=== PATIENT | male | born 1935 | race Caucasian/White ===

== ENCOUNTER 2018-08-19 05:03 | Emergency (ER) | payer OTHER, MEDICARE ==
[2018-08-19 06:08] LABS: Anisocytosis Slight; Basophils % (A) 1 %; Eosinophils # (A) 0.1 k/uL (0-0.7); Eosinophils % (A) 2 %; HGB 12.4 gm/dL (13.0-17.5); Hypochromasia Slight; Lymphocytes # (A) 1.4 k/uL (1.0-4.8); Lymphocytes % (A) 24 %; MCH 30.2 pg (25.0-35.0); MCHC 32.5 g/dL (31.0-37.0); MCV 92.7 fL (80.0-100.0); Mean Platelet Volume 7.3; Monocytes # (A) 0.3 k/uL (0-1.0); Monocytes % (A) 6 %; Neutrophils # (A) 3.8 k/uL (1.3-7.7); Neutrophils % (A) 65 %; Platelet Count 148 k/uL (150-450); RDW 16.2 % (11.5-15.5); WBC 5.9 k/uL (3.8-10.6)
--- NOTE | 2018-08-19 06:12 | XR ---
EXAMINATION TYPE: XR chest 2V DATE OF EXAM: 08/19/2018 COMPARISON: 04/23/2015 HISTORY: Dysrhythmia. The defibrillator malfunction. TECHNIQUE: Frontal and lateral views of the chest are obtained. FINDINGS: Heart size is normal. There is no gross heart failure. There is general coarsening of the pulmonary interstitial markings. I see no definite pleural effusion. There are chest leads. There is minimal pleural reaction at the lung bases. There are sternal wires. There is stent at the ascending aorta. The bony thorax is intact. IMPRESSION: Pulmonary interstitial fibrosis. No definite heart failure. No significant change compar ed to old exam.
[2018-08-19 06:17] LABS: INR 3.2 (<1.2); Partial Thromboplastin Time 34.6 sec (22.0-30.0); Prothrombin Time 28.3 sec (9.0-12.0)
[2018-08-19 06:23] LABS: ALT 32 U/L (21-72); AST 26 U/L (17-59); Albumin 4.1 g/dL (3.5-5.0); Alkaline Phosphatase 61 U/L (38-126); Anion Gap 10 mmol/L; Blood Urea Nitrogen 35 mg/dL (9-20); Calcium 9.5 mg/dL (8.4-10.2); Carbon Dioxide 27 mmol/L (22-30); Chloride 102 mmol/L (98-107); Glucose 221 mg/dL (74-99); Magnesium 1.7 mg/dL (1.6-2.3); Potassium 4.3 mmol/L (3.5-5.1); Sodium 139 mmol/L (137-145); Total Bilirubin 0.4 mg/dL (0.2-1.3); Total Protein 7.1 g/dL (6.3-8.2)
[2018-08-19 06:41] LABS: Creatine Kinase MB 2.8 ng/mL (0.0-2.4); Troponin I 0.016 ng/mL (0.000-0.034)
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
[2018-08-19 08:02] VITALS: BP 162/86; PULSE 70; RESP 20; TEMP 98
--- NOTE | 2018-08-21 06:54 | CDI ---
Documentation Clarification OP Dear Dr. Ele Woodard Please do addendum to ED report for missing HPI and Physical examination. Thank you, Elle Tee [employer] If you have any questions, please contact Thai Masseur at [phone] [facility]
== END 2018-08-19 08:35 | disposition home or self-care (01) ==
LOC: EC 05:03
DX: J44.9 Chronic obstructive pulmonary disease, unspecified (principal); E11.9 Type 2 diabetes mellitus without complications; E78.5 Hyperlipidemia, unspecified; I10 Essential (primary) hypertension; I25.2 Old myocardial infarction; Z85.51 Personal history of malignant neoplasm of bladder; Z95.810 Presence of automatic (implantable) cardiac defibrillator; Z95.1 Presence of aortocoronary bypass graft; Z95.5 Presence of coronary angioplasty implant and graft; Z87.891 Personal history of nicotine dependence; Z79.02 Long term (current) use of antithrombotics/antiplatelets; Z79.84 Long term (current) use of oral hypoglycemic drugs; Z79.82 Long term (current) use of aspirin; Z79.899 Other long term (current) drug therapy; Z88.5 Allergy status to narcotic agent
CPT/HCPCS: 36415; 71046; 80053; 82550; 82553; 83735; 84484; 85025; 85610; 85730; 93005; 99285

== ENCOUNTER 2019-01-12 03:32 | Emergency (ER) | payer OTHER, MEDICARE ==
[2019-01-12 03:37] VITALS: TEMP 98.3
[2019-01-12 04:04] LABS: Anisocytosis Slight; Basophils # (A) 0.1 k/uL (0-0.2); Basophils % (A) 1 %; Eosinophils # (A) 0.1 k/uL (0-0.7); Eosinophils % (A) 1 %; HGB 9.9 gm/dL (13.0-17.5); Hypochromasia Marked; Lymphocytes # (A) 1.1 k/uL (1.0-4.8); Lymphocytes % (A) 13 %; MCV 86.9 fL (80.0-100.0); Mean Platelet Volume 7.6; Monocytes # (A) 0.4 k/uL (0-1.0); Monocytes % (A) 5 %; Neutrophils # (A) 7.1 k/uL (1.3-7.7); Neutrophils % (A) 79 %; Platelet Count 186 k/uL (150-450); Poikilocytosis Slight; RBC 3.68 m/uL (4.30-5.90); RDW 18.4 % (11.5-15.5); WBC 8.9 k/uL (3.8-10.6)
[2019-01-12 04:15] LABS: Albumin 4.4 g/dL (3.5-5.0); Calcium 9.9 mg/dL (8.4-10.2); Magnesium 1.7 mg/dL (1.6-2.3); Potassium 4.6 mmol/L (3.5-5.1); Total Bilirubin 0.4 mg/dL (0.2-1.3); Total Protein 7.5 g/dL (6.3-8.2)
--- NOTE | 2019-01-12 04:16 | XR ---
EXAM: XR Chest, 2 Views CLINICAL HISTORY: ITS.REASON XR Reason: Chest Pain TECHNIQUE: Frontal and lateral views of the chest. COMPARISON: 08/19/2018 chest x-ray IMPRESSION: Cardiomegaly. Mild vascular congestion. Possible trace left pleural effusion. No consolidation. Pacer wires are in place.
[2019-01-12 04:19] LABS: INR 2.5 (<1.2); Partial Thromboplastin Time 28.8 sec (22.0-30.0); Prothrombin Time 24.1 sec (9.0-12.0)
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
[2019-01-12 06:02] VITALS: BP 172/86; PULSE 96; RESP 15
== END 2019-01-12 06:14 | disposition left against medical advice (07) ==
LOC: EC 03:32
DX: I21.4 Non-ST elevation (NSTEMI) myocardial infarction (principal); Z95.5 Presence of coronary angioplasty implant and graft; E11.9 Type 2 diabetes mellitus without complications; E78.5 Hyperlipidemia, unspecified; I10 Essential (primary) hypertension; I25.2 Old myocardial infarction; Z79.82 Long term (current) use of aspirin; Z79.02 Long term (current) use of antithrombotics/antiplatelets; Z79.84 Long term (current) use of oral hypoglycemic drugs; Z79.899 Other long term (current) drug therapy; Z88.5 Allergy status to narcotic agent; Z87.891 Personal history of nicotine dependence; Z95.810 Presence of automatic (implantable) cardiac defibrillator; Z95.1 Presence of aortocoronary bypass graft; Z85.51 Personal history of malignant neoplasm of bladder
CPT/HCPCS: 36415; 71046; 80053; 83735; 84484; 85025; 85610; 85730; 93005; 99285

== ENCOUNTER 2019-08-31 12:46 | Emergency (ER) | payer OTHER, MEDICARE ==
[2019-08-31 13:12] VITALS: TEMP 98.1
--- NOTE | 2019-08-31 14:08 | XR ---
EXAMINATION TYPE: XR chest 2V DATE OF EXAM: 08/31/2019 COMPARISON: Today HISTORY: Cough. Short of breath. TECHNIQUE: 2 views FINDINGS: There are sternal wires. Heart is borderline enlarged. There is mild pulmonary congestion. There is left axillary pacemaker. There is mild blunting of the costophrenic angles. There is aortic stent. IMPRESSION: There is probably mild heart failure unchanged compared to exam earlier today. There is u nderlying pulmonary fibrosis.
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
[2019-08-31 14:42] LABS: African American GFR (CKD) >90 (>60 ml/min/1.73 sqM); Anion Gap 7 mmol/L; Blood Urea Nitrogen 28 mg/dL (9-20); Calcium 9.5 mg/dL (8.4-10.2); Carbon Dioxide 33 mmol/L (22-30); Chloride 98 mmol/L (98-107); Glucose 132 mg/dL (74-99); Non-African American GFR(CKD) 80 (>60 ml/min/1.73 sqM); Sodium 138 mmol/L (137-145)
[2019-08-31 14:53] LABS: Anisocytosis Slight; Basophils % (A) 0 %; Eosinophils # (A) 0.1 k/uL (0-0.7); Eosinophils % (A) 1 %; HCT 38.3 % (39.0-53.0); HGB 12.4 gm/dL (13.0-17.5); Lymphocytes # (A) 0.9 k/uL (1.0-4.8); Lymphocytes % (A) 15 %; MCH 31.2 pg (25.0-35.0); MCHC 32.4 g/dL (31.0-37.0); MCV 96.2 fL (80.0-100.0); Mean Platelet Volume 7.5; Monocytes # (A) 0.6 k/uL (0-1.0); Monocytes % (A) 10 %; Neutrophils % (A) 70 %; Platelet Count 116 k/uL (150-450); RBC 3.98 m/uL (4.30-5.90); RDW 16.1 % (11.5-15.5); WBC 5.7 k/uL (3.8-10.6)
[2019-08-31 15:09] LABS: Potassium 4.3 mmol/L (3.5-5.1)
[2019-08-31] MEDS ORDERED: FUROSEMIDE 10 MG/ML 4 ML VIAL IV STA (15:30)
[2019-08-31 15:33] LABS: VBG PH 7.41 (7.31-7.41)
[2019-08-31 16:46] VITALS: BP 127/69; PULSE 68; RESP 18
== END 2019-08-31 16:47 | disposition home or self-care (01) ==
LOC: EC 12:46
DX: R09.02 Hypoxemia (principal); R06.02 Shortness of breath; R05 Cough; R09.89 Other specified symptoms and signs involving the circulatory and respiratory systems; E11.9 Type 2 diabetes mellitus without complications; E78.5 Hyperlipidemia, unspecified; J84.10 Pulmonary fibrosis, unspecified; I11.0 Hypertensive heart disease with heart failure; I50.9 Heart failure, unspecified; I25.2 Old myocardial infarction; Z79.02 Long term (current) use of antithrombotics/antiplatelets; Z79.82 Long term (current) use of aspirin; Z79.84 Long term (current) use of oral hypoglycemic drugs; Z79.899 Other long term (current) drug therapy; Z88.5 Allergy status to narcotic agent; Z87.891 Personal history of nicotine dependence; Z95.1 Presence of aortocoronary bypass graft; Z95.810 Presence of automatic (implantable) cardiac defibrillator; Z85.51 Personal history of malignant neoplasm of bladder
CPT/HCPCS: 36415; 71046; 80048; 82803; 83880; 85025; 87081; 87430; 87502; 93005; 99285

== ENCOUNTER → 2021-01-19 | Outpatient (CLI) | payer OTHER ==
--- NOTE | 2021-01-20 11:26 | P.ARTDOP ---
Arterial Doppler LOWER EXTREMITY ARTERIAL DOPPLER: DATE OF SERVICE: 01/19/2021 Reason for study: Suspected PVD. Doppler waveforms: Multiphasic at both femorals. Atypical but sharply defined below the femoral bilaterally. Digital waveforms mildly blunted.. Pulse volume recording: []. Pressure gradients: Mild gradient above the ankle on the right. Ankle-brachial indices: 0.81 on the right and greater than 1 on the left. Toe brachial indices: 0.66 on the right, 0.59 on the left Impression: Mild infrapopliteal disease on the right. Mild vasospastic phenomenon versus distal disease. Perfusion appears quite adequate for healing..
== END | disposition home or self-care (01) ==
LOC: RADUSWWP 13:07
PROVIDERS: ATTEND Podiatrist Foot & Ankle Surgery
DX: I73.9 Peripheral vascular disease, unspecified (principal)
CPT/HCPCS: 93923